=== PATIENT | male | born 1990 | race Caucasian/White ===

== ENCOUNTER 2017-07-28 15:01 | Emergency (ER) | payer SELFPAY ==
[~2017-07-28] VITALS: Ht 175.3 cm; Wt 77.1 kg
[2017-07-28] MEDS ORDERED: UNOBMED (15:18)
[2017-07-28] MEDS ORDERED: NORCO 10/3251 EA ORAL (15:18)
[2017-07-28] MEDS ORDERED: FLOMAX0.4 MG ORAL (15:18)
--- NOTE | 2017-07-28 15:22 | Emergency Room Report ---
History of Present Illness General Chief Complaint: Pain Source: Patient Present Illness HPI Patient is a 26-year-old male brought in by [employer] for medical clearance. Patient states that he had prior history of kidney stones as well as urinary infection. Patient recently been on antibiotics. Patient states that he was having increased flank pain as well as chills and nausea. Patient denies any hematuria. 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 Allergies: Coded Allergies: No Known Allergies (Unverified , 07/28/17) Patient History Past Medical History: see triage record Reviewed Nursing Documentation: PMH: Agreed; PSxH: Agreed Nursing Documentation-PMH Past Medical History: No Stated History Review of Systems All Other Systems: negative except mentioned in HPI Physical Exam Vital Signs Date Time Temp Pulse Resp B/P (MAP) Pulse Ox O2 Delivery O2 Flow Rate FiO2 07/28/17 15:13 98.1 91 17 147/92 97 Room Air 98.1 Sp02 EP Interpretation: reviewed, normal General Appearance: normal inspection, well appearing, no apparent distress, alert, GCS 15, non-toxic Head: atraumatic ENT: normal ENT inspection, hearing grossly normal, normal voice Neck: normal inspection, full range of motion, supple, no bony tend Respiratory: normal inspection, lungs clear, normal breath sounds, no respiratory distress, no retraction, no wheezing Cardiovascular #1: regular rate, rhythm, no edema Gastrointestinal: normal inspection, normal bowel sounds, non tender, soft, no guarding, no hernia Genitourinary: no CVA tenderness Musculoskeletal: normal inspection, back normal, normal range of motion Neurologic: normal inspection, alert, oriented x3, responsive, soap press feeder III-XII nml as tested, speech normal Psychiatric: normal inspection, judgement/insight normal, mood/affect normal Skin: normal inspection, normal color, no rash Medical Decision Making Diagnostic Impression: Primary Impression: Kidney stone on right side Additional Impressions: Kidney stone on left side Substance abuse ER Course Patient presented for flank pain. Differential diagnosis included was not limited to pneumonia, renal stone, malingering, rib fracture, pulmonary embolism , ulcer, enteritis, pyelonephritis among others. Because of complexity of patient's case laboratory testing and imaging studies were ordered. The patient noted to have appearance of no acute distress. The CT imaging was ordered due to patient's history. patient given Toradol for pain . CT imaging read by radiology showed no evidence of obstructive urinary stone. Patient was noted to have a bladder stone at UVJ consistent with passing kidney stones.Urinalysis showed moderate amount of blood with small amount of white blood cells. Patient was given prescription for Keflex. Patient was noted to have bilateral small renal calculi. The patient is medically cleared for returning to care home. The patient is advised to follow up with primary care doctor in 1-2 days. Patient is advised to return if any worsening condition or if any changes in status that are concerning. This report is dictated with [employer] software which may occasionally lead to discrepancies related to use of this software. Labs Test 07/28/17 15:28 Urine Opiates Screen Positive (NEGATIVE) Urine Barbiturates Screen Negative (NEGATIVE) Phencyclidine (PCP) Screen Negative (NEGATIVE) Urine Amphetamines Screen Positive (NEGATIVE) Urine Benzodiazepines Screen Negative (NEGATIVE) Urine Cocaine Screen Negative (NEGATIVE) Urine Marijuana (THC) Screen Positive (NEGATIVE) Last Vital Signs Date Time Temp Pulse Resp B/P (MAP) Pulse Ox O2 Delivery O2 Flow Rate FiO2 07/28/17 15:13 98.1 91 17 147/92 97 Room Air 98.1 Status: improved Disposition: D/C TO LAW ENFORCEMENT IN [facility] Condition: Stable Scripts Cephalexin* (KEFLEX*) 500 Mg Capsule 500 MG ORAL Q6H, #28 CAP 0 Refills Prov: Fredy Fortune 07/28/17 Ibuprofen* (MOTRIN*) 600 Mg Tablet 600 MG ORAL Q8H PRN for For Pain, #30 TAB 0 Refills Prov: Fredy Fortune 07/28/17 Fredy Fortune Jul 28, 2017 15:22
[2017-07-28] MEDS ORDERED: Ketorolac 60mg Inj IM ONE (15:30)
[2017-07-28 15:55] VITALS: BP 147/92
[2017-07-28] MEDS ORDERED: IBUPROFEN600 MG ORAL (16:12)
[2017-07-28 16:26] LABS: APPEARANCE,URINE CLOUDY; COLOR,URINE AMBER; GLUCOSE, URINE (UA) NEGATIVE (NEGATIVE); KETONES,URINE 1+ (NEGATIVE); PROTEIN,URINE 2+ (NEGATIVE)
[2017-07-28 16:27] LABS: BILIRUBIN, URINE 1+ (NEGATIVE); LEUKOCYTE ESTERASE ,URINE 2+ (NEGATIVE); NITRITE,URINE NEGATIVE (NEGATIVE); UROBILINOGEN,URINE 1 MG/DL (0.0-1.0)
[2017-07-28] MEDS ORDERED: KEFLEX500 MG ORAL (16:32)
[2017-07-28 16:36] VITALS: BP 147/92
--- NOTE | 2017-07-29 09:56 | Diagnostic Imaging Report ---
Indication: Abdominal pain Technique: Spiral acquisitions obtained through the abdomen and pelvis. No oral or IV contrast, per urinary stone protocol. Multiplanar reconstructions were generated. Total dose length product 547.44 mGycm. CTDIvol(s) 11.05 mGy. Dose reduction achieved using automated exposure control Comparison: none Findings: A 5 mm calculus is seen in the bladder lumen, adjacent to the/ureteral orifice. Minimal left hydronephrosis is demonstrated. Bilateral 2 mm intrarenal calculi are demonstrated. Lack of IV contrast limits assessment of the renal parenchyma. No gross renal parenchymal mass or cyst demonstrated. Lack of IV contrast limits assessment of the other solid organs. The liver, gallbladder, bile ducts, pancreas, spleen, adrenals are all unremarkable. No retroperitoneal or mesenteric mass or adenopathy. No pelvic mass or adenopathy. The appendix is normal. No diverticulosis or diverticulitis. No small bowel distention. No free or loculated intraperitoneal air or fluid. Distal esophagus, stomach, duodenum are unremarkable. Impression: Positive for 5 mm calculus within the bladder lumen, at or just beyond the left ureteral orifice, presumably a stone that has recently passed orifice on the verge of passing Bilateral nonobstructive intrarenal calculi Otherwise unremarkable This agrees with the preliminary interpretation provided overnight by [facility]. The CT scanner at [facility] is accredited by the [employer] and the scans are performed using protocols designed to limit radiation exposure to as low as reasonably achievable to attain images of sufficient resolution adequate for diagnostic evaluation.
== END 2017-07-28 16:37 ==
LOC: EMR 15:41
DX: N20.0 Calculus of kidney (principal)
CPT/HCPCS: 74176; 80307; 81003; 87086; 96372; 99284